=== PATIENT | male | born 1995 | race Caucasian/White ===

== ENCOUNTER → 2019-05-04 | Emergency (ER) | payer OTHER ==
[~2019-05-04] MED LIST: ALBU8.5H8 IH; CYAN10009 PO; FAMO20TA8 PO; MESALAMINE PO; MULT1TAB73 PO; PRED50TA PO
== END | disposition left against medical advice (07) ==
LOC: ER 19:46
DX: Z53.21 Procedure and treatment not carried out due to patient leaving prior to being seen by health care provider (principal)

== ENCOUNTER 2019-05-05 02:15 | Inpatient (IN) | payer OTHER ==
[~2019-05-05] VITALS: Ht 177.8 cm; Wt 60.3 kg
[2019-05-05 05:00] VITALS: BP 109/83
[2019-05-05] MEDS ORDERED: MESALAMINE PO (05:20)
[2019-05-05] MEDS ORDERED: CYAN-51 PO (05:20)
[2019-05-05] MEDS ORDERED: ALBU8.5H8 IH (05:20)
[2019-05-05] MEDS ORDERED: MULT1TAB73 PO (05:20)
[2019-05-05] MEDS ORDERED: PRED50TA PO (05:20)
[2019-05-05] MEDS ORDERED: FAMO20TA8 PO (05:20)
[2019-05-05] MEDS ORDERED: Z GUARD REMEDY 2 OZ OINT TP PRN (05:30)
[2019-05-05] MEDS ORDERED: ACETAMINOPHEN 650 MG/SUPP.RECT RC PRN (05:30)
[2019-05-05] MEDS ORDERED: KETOROLAC TROMETHAMINE INJ 30 MG/ML VIAL IM PRN (05:30)
[2019-05-05] MEDS ORDERED: MAG HYDROX/AL HYDROX/SIMETH 30 ML UDC PO PRN (05:30)
[2019-05-05] MEDS ORDERED: MAGNESIUM HYDROXIDE 30 ML UDC PO PRN (05:30)
[2019-05-05] MEDS ORDERED: ONDANSETRON HCL/PF 4 MG/2 ML VIAL IVP PRN (05:30)
[2019-05-05] MEDS ORDERED: ACETAMINOPHEN 325 MG TABLET PO PRN (05:30)
[2019-05-05 07:23] LABS: BASOPHILS % (AUTO) 0.3 % (0.0-2.0); EOSINOPHILS % (AUTO) 0.1 % (0.0-6.0); HEMATOCRIT 33 % (39-51); LYMPHOCYTES # (AUTO) 1.1 /CMM (0.8-4.8); LYMPHOCYTES % (AUTO) 19.5 % (20.0-44.0); MEAN CORPUSCULAR HGB CONC 33 g/dl (31.0-36.0); MEAN CORPUSCULAR VOLUME 82 fL (80-96); MONOCYTES # (AUTO) 0.6 /CMM (0.1-1.30); MONOCYTES % (AUTO) 10.7 % (2.0-12.0); NEUTROPHILS % (AUTO) 69.4 % (43.0-81.0); PLATELET COUNT (AUTO) 342 /CMM (150-450); RED BLOOD CELL COUNT(AUTO) 4.02 MIL/uL (4.5-6.0); WHITE BLOOD COUNT (AUTO) 5.7 K/uL (4.3-11.0)
[2019-05-05 07:49] LABS: ALBUMIN 2.6 g/dL (3.4-5.0); BILIRUBIN,TOTAL 0.4 mg/dL (0.2-1.0); CALCIUM, SERUM 8.6 mg/dL (8.5-10.1); CREATININE 0.6 mg/dL (0.6-1.3); PHOSPHORUS 4.4 mg/dL (2.5-4.9); POTASSIUM 4.4 mmol/L (3.5-5.1); TOTAL PROTEIN, SERUM 5.6 g/dL (6.4-8.2)
[2019-05-05 08:00] VITALS: BP 114/74
[2019-05-05 08:13] LABS: THYROID STIMULATING HORMONE 0.569 uIU/mL (0.358-3.74)
[2019-05-05] MEDS: FAMOTIDINE (20 MG) 20 MG TABLET PO SCH ×2 (09:00→17:13)
[2019-05-05] MEDS ORDERED: MESALAMINE 500 MG PO SCH (09:00)
[2019-05-05] MEDS: MESALAMINE 400 MG CAP PO SCH ×3 (09:00→17:13)
[2019-05-05] MEDS ORDERED: PREDNISONE 60 MG PO SCH (09:00)
[2019-05-05] MEDS ORDERED: PANTOPRAZOLE 40 MG VIAL IV SCH (09:00)
[2019-05-05] MEDS ORDERED: MORPHINE SULFATE INJ 2 MG/ML DISP.SYRIN IV PRN (09:30)
[2019-05-05] MEDS: methylPREDNISolone SOD SUCC 125 MG/2ML VIAL IV SCH (09:53)
[2019-05-05] MEDS: METOCLOPRAMIDE HCL 10 MG/2 ML VIAL IM SCH ×4 (09:54→21:18)
[2019-05-05] MEDS: IV D5/0.45 NACL 1,000 ML IV PRN (09:55)
[2019-05-05 11:54] LABS: APPEARANCE,URINE CLEAR (CLEAR); BILIRUBIN,URINE NEGATIVE (NEGATIVE); BLOOD, URINE NEGATIVE Ery/uL (NEGATIVE); COLOR,URINE YELLOW (YELLOW); KETONES,URINE NEGATIVE (NEGATIVE); LEUKOCYTE ESTERASE ,URINE NEGATIVE (NEGATIVE); NITRITE, URINE NEGATIVE (NEGATIVE); PH,URINE 5.5 (5.0-8.0); PROTEIN,URINE NEGATIVE (NEGATIVE); UGLUCOSE NEGATIVE (NEGATIVE); UROBILINOGEN,URINE 0.2 EU/dL (0.2)
[2019-05-05] MEDS ORDERED: ALBUTEROL FS 2.5 MG/3 ML VIAL.NEB NEB PRN (13:30)
[2019-05-05 16:00] VITALS: BP 104/61
[2019-05-05 20:00] VITALS: BP 126/85
[2019-05-06] MEDS: IV D5/0.45 NACL 1,000 ML IV PRN ×2 (01:23→17:12)
[2019-05-06 04:00] VITALS: BP 101/59
[2019-05-06 06:22] LABS: BASOPHILS % (AUTO) 0.4 % (0.0-2.0); EOSINOPHILS % (AUTO) 0.6 % (0.0-6.0); HEMATOCRIT 32 % (39-51); HEMOGLOBIN 10.4 g/dL (13.5-17.5); LYMPHOCYTES # (AUTO) 1.6 /CMM (0.8-4.8); LYMPHOCYTES % (AUTO) 34.4 % (20.0-44.0); MEAN CORPUSCULAR HGB CONC 33 g/dl (31.0-36.0); MEAN CORPUSCULAR VOLUME 82 fL (80-96); MONOCYTES # (AUTO) 0.6 /CMM (0.1-1.30); MONOCYTES % (AUTO) 13.4 % (2.0-12.0); NEUTROPHILS # (AUTO) 2.3 /CMM (1.8-8.9); NEUTROPHILS % (AUTO) 51.2 % (43.0-81.0); PLATELET COUNT (AUTO) 321 /CMM (150-450); RED BLOOD CELL COUNT(AUTO) 3.86 MIL/uL (4.5-6.0); WHITE BLOOD COUNT (AUTO) 4.5 K/uL (4.3-11.0)
[2019-05-06 06:31] LABS: CHOLESTEROL 95 mg/dL (<200); HDL CHOLESTEROL 38 mg/dL (40-60); LDL 50 mg/dL (0-99); TRIGLYCERIDES 47 mg/dL (30-150)
[2019-05-06 06:35] LABS: CALCIUM, SERUM 8.1 mg/dL (8.5-10.1); CREATININE 0.7 mg/dL (0.6-1.3); PHOSPHORUS 3.4 mg/dL (2.5-4.9); POTASSIUM 3.7 mmol/L (3.5-5.1)
[2019-05-06 08:00] VITALS: BP 105/69
[2019-05-06] MEDS: METOCLOPRAMIDE HCL 10 MG/2 ML VIAL IM SCH ×3 (08:17→16:54)
[2019-05-06] MEDS: methylPREDNISolone SOD SUCC 125 MG/2ML VIAL IV SCH (08:18)
[2019-05-06] MEDS: FAMOTIDINE (20 MG) 20 MG TABLET PO SCH ×2 (08:18→16:54)
[2019-05-06] MEDS: MESALAMINE 400 MG CAP PO SCH ×3 (08:22→16:54)
[2019-05-06 16:00] VITALS: BP_SYST 105; BP_SYST 109; BP_DIAS 68; BP_DIAS 69
[2019-05-06] MEDS: METOCLOPRAMIDE HCL 10 MG/2 ML VIAL IV SCH (21:59)
[2019-05-06] MEDS ORDERED: diphenhydrAMINE HCL ELIX 25 MG/10 ML UDC PO PRN (22:00)
[2019-05-07 04:00] VITALS: BP 110/70
[2019-05-07 06:51] LABS: BASOPHILS % (AUTO) 0.4 % (0.0-2.0); EOSINOPHILS % (AUTO) 1.2 % (0.0-6.0); HEMATOCRIT 34 % (39-51); HEMOGLOBIN 10.9 g/dL (13.5-17.5); LYMPHOCYTES # (AUTO) 1.6 /CMM (0.8-4.8); LYMPHOCYTES % (AUTO) 31.5 % (20.0-44.0); MEAN CORPUSCULAR HGB CONC 32 g/dl (31.0-36.0); MEAN CORPUSCULAR VOLUME 83 fL (80-96); MONOCYTES # (AUTO) 0.7 /CMM (0.1-1.30); MONOCYTES % (AUTO) 14.1 % (2.0-12.0); NEUTROPHILS # (AUTO) 2.7 /CMM (1.8-8.9); NEUTROPHILS % (AUTO) 52.8 % (43.0-81.0); PLATELET COUNT (AUTO) 385 /CMM (150-450); RED BLOOD CELL COUNT(AUTO) 4.11 MIL/uL (4.5-6.0); WHITE BLOOD COUNT (AUTO) 5.1 K/uL (4.3-11.0)
[2019-05-07 07:05] LABS: CALCIUM, SERUM 8.2 mg/dL (8.5-10.1); CREATININE 0.8 mg/dL (0.6-1.3); PHOSPHORUS 2.8 mg/dL (2.5-4.9); POTASSIUM 3.5 mmol/L (3.5-5.1)
[2019-05-07 08:00] VITALS: BP 109/63
[2019-05-07] MEDS: METOCLOPRAMIDE HCL 10 MG/2 ML VIAL IV SCH ×2 (08:58→11:39)
[2019-05-07] MEDS: methylPREDNISolone SOD SUCC 125 MG/2ML VIAL IV SCH (08:58)
[2019-05-07] MEDS: FAMOTIDINE (20 MG) 20 MG TABLET PO SCH (08:58)
[2019-05-07] MEDS: MESALAMINE 400 MG CAP PO SCH (08:59)
[2019-05-07] MEDS ORDERED: PRED50TA PO (10:37)
[2019-06-09] MEDS ORDERED: METR250T36 PO (13:36)
[2019-06-09] MEDS ORDERED: CIPR500S3 PO (13:36)
== END 2019-05-07 12:25 | disposition home or self-care (01) | DRG 245 ==
LOC: MEDSG1 04:32 → TELE1 05:31 → MEDSG1 10:30 → TELE1 11:00 → MEDSG1 11:02
PROVIDERS: ADMIT Student in an Organized Health Care Education/Training Program; ATTEND Student in an Organized Health Care Education/Training Program
DX: K50.912 Crohn's disease, unspecified, with intestinal obstruction (principal); K56.2 Volvulus; E44.1 Mild protein-calorie malnutrition; K56.699 Other intestinal obstruction unspecified as to partial versus complete obstruction; J45.909 Unspecified asthma, uncomplicated; D64.9 Anemia, unspecified; Z66 Do not resuscitate; Z91.14 Patient's other noncompliance with medication regimen; Z68.1 Body mass index [BMI] 19.9 or less, adult
CPT/HCPCS: 36415; 74018; 80048-TC; 80053-TC; 80061-TC; 81000-TC; 82728-TC; 83540-TC; 83690-TC; 83735-TC; 84100-TC; 84443-TC; 85025-TC; 85652-TC; 85730-TC; 87040-TC; G0378; J2270; J2765; J2930; J3490; Q0163

== ENCOUNTER 2019-06-10 12:40 | Inpatient (IN) | payer OTHER ==
[~2019-06-10] VITALS: Ht 172.7 cm; Wt 61.2 kg
[~2019-06-10 12:40] MED LIST changes: +CIPR500S3 PO; +CYAN-51 PO; -CYAN10009 PO; +METR250T36 PO
--- NOTE | 2019-06-10 12:50 | NUR ---
DELINQUENCY PREVENTION OFFICER NOTE RECEIVED REPORT FROM ANETTE MUNSON FROM [place].RECEIVED PATIENT IN UNIT VIA GURNEY,BROUGHT BY EMT.PATIENT AXOX4.ON TELE MONITOR SR HR 72.NO SOB NO DISTRESS NOTED.ON RA.SATURATING WELL.C/O ABDOMINAL PAIN.ABDOMEN SOFT AND MILDLY DISTENDED.BLOATED.C/O NAUSEA.IV ON RFA#22.INTACT AND PATENT.BED IS LOCKED AND IN LOW POSITION.CALL LIGHT IN REACH.SRX2.PATIENT BRP WITH STEADY GATE.WILL CONTINUE TO MONITOR.
[2019-06-10 13:03] VITALS: BP 107/64
[2019-06-10] MEDS ORDERED: MAGNESIUM HYDROXIDE 30 ML UDC PO PRN (13:30)
[2019-06-10] MEDS ORDERED: ACETAMINOPHEN 325 MG TABLET PO PRN (13:30)
[2019-06-10] MEDS ORDERED: HYDROCODONE/APAP 5/325MG 1 EACH TABLET PO PRN (13:30)
[2019-06-10] MEDS ORDERED: ONDANSETRON HCL/PF 4 MG/2 ML VIAL IVP PRN (13:30)
[2019-06-10] MEDS ORDERED: MAG HYDROX/AL HYDROX/SIMETH 30 ML UDC PO PRN (13:30)
--- NOTE | 2019-06-10 13:30 | NUR ---
SUPPORT GROUP MANAGER NOTE PATIENT REQUESTED TO HAVE MORPHINE 4MG IV PRN Q4H. MADE AWARE.TO CONTINUE SAME ORDERS 2MG.PATIENT MADE AWARE.WILL CONTINUE TO MONITOR.
[2019-06-10] MEDS ORDERED: PRED20TA PO (13:36)
[2019-06-10] MEDS ORDERED: FERR325T23 PO (13:36)
[2019-06-10] MEDS: IV NS 0.9% 1,000 ML IV PRN (13:40)
[2019-06-10] MEDS: MORPHINE SULFATE INJ 2 MG/ML DISP.SYRIN IV PRN ×3 (13:41→22:17)
[2019-06-10 16:00] VITALS: BP_SYST 102; BP_SYST 122; BP_DIAS 64; BP_DIAS 69
[2019-06-10] MEDS: methylPREDNISolone SOD SUCC 40 MG/ML VIAL IV SCH ×2 (17:12→23:34)
[2019-06-10] MEDS: METRONIDAZOLE 500MG/ NS 100ML 500 MG in PREMIX 1 EA IV SCH ×2 (17:12→23:34)
--- NOTE | 2019-06-10 19:00 | NUR ---
FIRE SPRINKLER DESIGNER OPENING NOTES RECEIVED BEDSIDE REPORT FROM AM RN. PATIENT AWAKE, A/OX4. ON TELE MONITOR SR WITH HR 74. ON ROOM AIR, NO SOB AND RESPIRATORY DISTRESS NOTED. C/O ABDOMINAL PAIN, WILL ADMINISTER PRN MED. ABDOMEN SOFT AND MILDLY DISTENDED, BLOATED. C/O NAUSEA, WILL ADMINISTER PRN NAUSEA MEDICATION. IV ON RFA#22, IV FLUIDS RUNNING ORDERED, IV SITE INTACT AND PATENT. SAFETY MEASURES IN PLACE; CALL LIGHT WITHIN REACH, BED IS LOCKED AND IN LOW POSITION, SIDE RAILS UP X2. PER REPORT, PATIENT BRP WITH STEADY GATE. WILL CONTINUE TO MONITOR.
--- NOTE | 2019-06-10 19:07 | NUR ---
POWER GRADER OPERATOR CLOSING NOTE ENDORSED PATIENT TO PM NURSE FOR YASHIRA.PATIENT SLEEPING .EASILY AROUSABLE.PRN PAIN MEDS GIVEN.
[2019-06-10 20:00] VITALS: BP 94/57
--- NOTE | 2019-06-10 22:01 | NUR ---
HYDRODYNAMICIST NOTES PATIENT REQUESTING FOR PAIN MEDICATION, RATED ABDOMINAL PAIN 8/10. BP CHECKED 106/57. PATIENT STATED THAT IS HIS NORMAL BP RANGE. WILL ADMINISTER PRN PAIN MEDICATION.
[2019-06-11] VITALS: BP 102/63
[2019-06-11] MEDS: MORPHINE SULFATE INJ 2 MG/ML DISP.SYRIN IV PRN ×5 (02:51→21:14)
[2019-06-11 04:00] VITALS: BP 100/47
[2019-06-11] MEDS: METRONIDAZOLE 500MG/ NS 100ML 500 MG in PREMIX 1 EA IV SCH ×4 (06:16→23:54)
[2019-06-11] MEDS: methylPREDNISolone SOD SUCC 40 MG/ML VIAL IV SCH ×4 (06:16→23:57)
[2019-06-11 06:33] LABS: BASOPHILS % (AUTO) 0.1 % (0.0-2.0); HEMATOCRIT 32 % (39-51); HEMOGLOBIN 10.5 g/dL (13.5-17.5); LYMPHOCYTES # (AUTO) 0.8 /CMM (0.8-4.8); LYMPHOCYTES % (AUTO) 9.6 % (20.0-44.0); MEAN CORPUSCULAR HGB CONC 33 g/dl (31.0-36.0); MEAN CORPUSCULAR VOLUME 82 fL (80-96); MONOCYTES # (AUTO) 0.1 /CMM (0.1-1.30); MONOCYTES % (AUTO) 1.7 % (2.0-12.0); NEUTROPHILS # (AUTO) 6.9 /CMM (1.8-8.9); NEUTROPHILS % (AUTO) 88.6 % (43.0-81.0); PLATELET COUNT (AUTO) 322 /CMM (150-450); WHITE BLOOD COUNT (AUTO) 7.8 K/uL (4.3-11.0)
[2019-06-11 06:47] LABS: THYROID STIMULATING HORMONE 0.236 uIU/mL (0.358-3.74)
[2019-06-11 06:50] LABS: CALCIUM, SERUM 8.4 mg/dL (8.5-10.1); CREATININE 0.9 mg/dL (0.6-1.3); MAGNESIUM 2.3 mg/dL (1.8-2.4); PHOSPHORUS 5.8 mg/dL (2.5-4.9); POTASSIUM 4.6 mmol/L (3.5-5.1)
--- NOTE | 2019-06-11 07:51 | NUR ---
MAGNET MAKER CLOSING NOTES NO ACUTE CHANGES THROUGHOUT SHIFT. ALL MD ORDERS ATTENDED. ALL NEEDS ANTICIPATED AND MET. ENDORSED TO AM RN FOR YASHIRA.
[2019-06-11 08:00] VITALS: BP 100/62
--- NOTE | 2019-06-11 08:00 | NUR ---
PLANNING AIDE NOTES PT IN BED, AWAKE, ALERT AND ORIENTED, WITH COMPLAINT OF ABDOMINAL PAIN, NO COMPLAINT OF NAUSEA OR DIARRHEA, BREATHING PATTERN NORMAL, IV FLUIDS INFUSING WELL, CALL LIGHT WITHIN REACH, NEEDS ATTENDED.
[2019-06-11] MEDS: IV NS 0.9% 1,000 ML IV PRN ×2 (08:16→20:00)
--- NOTE | 2019-06-11 11:00 | NUR ---
RN MS NOTES PER DR. MUIR, PT OK TO HAVE CLEAR LIQUID DIET IF HE IS TOLERATING IT.
[2019-06-11 12:00] VITALS: BP 93/50
--- NOTE | 2019-06-11 13:00 | NUR ---
RN MS NOTES PT IN BED, AWAKE, ALERT AND ORIENTED, PAIN MEDICATION GIVEN FOR PAIN MANAGEMENT, VERBALIZED RELIEF ON REASSESSMENT, AMBULATES WITH STEADY GAIT, SEEN AND EXAMINED BY DR. MUIR, PLAN OF CARE INCLUDING CODE STATUS DISCUSSED WITH PT, VERBALIZED UNDERSTANDING, NEEDS ATTENDED.
[2019-06-11 16:00] VITALS: BP 102/65
--- NOTE | 2019-06-11 18:12 | NUR ---
RN MS NOTES PT AWAKE, NOT IN DISTRESS, NO COMPLAINT OF PAIN AT THIS TIME, WALKING ALONG THE HALLWAY WITH STEADY GAIT, TOLERATES CURRENT DIET OF CLEAR LIQUIDS, PM MEDS GIVEN ORDERED, PT INSISTING OF ADVANCING HIS DIET BECAUSE HE IS HUNGRY, EXPLAINED TO PT THE IMPORTANCE OF BOWEL REST ORDERED AND INSTRUCTED BY MD, WILL CONTINUE TO MONITOR.
[2019-06-11 20:00] VITALS: BP 103/59
[2019-06-12] MEDS: MORPHINE SULFATE INJ 2 MG/ML DISP.SYRIN IV PRN ×6 (01:36→22:37)
[2019-06-12 04:00] VITALS: BP 107/61
[2019-06-12] MEDS: methylPREDNISolone SOD SUCC 40 MG/ML VIAL IV SCH ×4 (05:28→23:26)
[2019-06-12] MEDS: METRONIDAZOLE 500MG/ NS 100ML 500 MG in PREMIX 1 EA IV SCH ×4 (05:28→23:33)
[2019-06-12] MEDS: IV NS 0.9% 1,000 ML IV PRN ×2 (05:36→22:32)
--- NOTE | 2019-06-12 05:57 | NUR ---
RN NOTES PATIENT IN BED, AWAKE WATCHING TV. ALERT AND ORIENTED. VERBALLY ABLE TO COMMUNICATE NEED. AMBULATORY. MORPHINE ADMINISTERED ROUND THE CLOCK FOR ABDOMINAL PAIN. WANTED TO GO AMA, BUT CHANGED MIND LATER. NEEDS ATTENDED. KEPT CLEAN AND DRY. WILL ENDORSE TO NEXT SHIFT FOR CONTINUITY OF CARE.
[2019-06-12 07:28] LABS: CALCIUM, SERUM 7.9 mg/dL (8.5-10.1); CREATININE 0.6 mg/dL (0.6-1.3); POTASSIUM 4.6 mmol/L (3.5-5.1)
[2019-06-12 07:39] LABS: BASOPHILS % (AUTO) 0.2 % (0.0-2.0); HEMATOCRIT 31 % (39-51); LYMPHOCYTES # (AUTO) 0.7 /CMM (0.8-4.8); LYMPHOCYTES % (AUTO) 6.5 % (20.0-44.0); MEAN CORPUSCULAR HGB CONC 33 g/dl (31.0-36.0); MEAN CORPUSCULAR VOLUME 82 fL (80-96); MONOCYTES # (AUTO) 0.5 /CMM (0.1-1.30); MONOCYTES % (AUTO) 4.5 % (2.0-12.0); NEUTROPHILS # (AUTO) 9.1 /CMM (1.8-8.9); NEUTROPHILS % (AUTO) 88.8 % (43.0-81.0); PLATELET COUNT (AUTO) 333 /CMM (150-450); RED BLOOD CELL COUNT(AUTO) 3.73 MIL/uL (4.5-6.0); WHITE BLOOD COUNT (AUTO) 10.3 K/uL (4.3-11.0)
--- NOTE | 2019-06-12 07:43 | NUR ---
RN OPENING NOTES Patient remains on room air, no sob noted, patient denies pain at this time. Patient lying down comfortably on bed, patient able to verbalize needs. RFA #22 remains patent at NS 75 mL per hour. Bed at the lowest setting, call light within reach.
[2019-06-12 08:00] VITALS: BP 102/66
--- NOTE | 2019-06-12 11:11 | NUR ---
Social service consult requested by Dr. Mclean for history of substance abuse. Pt. is a 24 year old male who was admitted to [facility] for abdominal pain. SW met with pt. bedside. Pt. is alert and oriented x 4. Pt. was lying in his bed when SW met with him. Pt. is cooperative with SW during the assessment. Pt's mood is congruent. Pt. stated he was living with his mom but is not able to go back due to landlord having issues with pt. being there. Pt. is currently homeless. SW inquired with pt. if he would like [facility] placement, Pt. stated, " I don't know yet." SW to come back later to ask pt. his discharge plan. Pt. is a methamphetamine user and stated he last used 60 days ago. Pt. is interested in going to an inpatient treatment program and informed SW that [facility] has initiated a referral packet to [facility]. SW to follow up with Anastasiia Miller at [facility]. Pt. was using methamphetamines daily. Pt. denies alcohol, marijuana and cigarette use. Pt. states he has a history of Bipolar and Depression and is no longer taking any psychotropic medications. MATTIE contacted [facility] and spoke with Anastasiia Contro [phone]. Per Anastasiia, pt. keeps hopping from one hospital to another and a new referral needs to be sent from every hospital which is delaying the process of pt. being accepted. Anastasiia requested for SW to send a referral packet. MATTIE faxed referral to intake at [facility] at .
[2019-06-12 16:00] VITALS: BP 110/70
--- NOTE | 2019-06-12 17:57 | NUR ---
RN CLOSING NOTES Patient remains on room air, no sob noted, patient remains a/o x4. Patient states he has abdominal pain but is controlled with medications. Patient told doctor that he wants to eat solid food, even though his abdominal xray tests shows bowel obstruction. MD explained to the patient of risks of eating, patient stated he understood and wanted to eat anyway. Patient able to eat without pain and vomiting. Bed at the lowest setting, call light within reach, will give report to NOC RN for YASHIRA bedside.
--- NOTE | 2019-06-12 19:10 | NUR ---
CHANGED OF SHIFT REPORT Patient in bed, awake, A/O x 4. IVF infusing. Abdomen soft and tender, mildly distended. Started Soft diet today per report. Patient denies nausea, vomiting. Reports had BM today. Instructed to use call light for assistance, verbalized understanding.
[2019-06-12 20:00] VITALS: BP 114/63
[2019-06-13] MEDS: MORPHINE SULFATE INJ 2 MG/ML DISP.SYRIN IV PRN ×2 (02:44→07:42)
[2019-06-13 04:00] VITALS: BP 110/66
[2019-06-13 04:05] VITALS: BP 110/66
[2019-06-13] MEDS: methylPREDNISolone SOD SUCC 40 MG/ML VIAL IV SCH ×2 (05:32→12:00)
[2019-06-13] MEDS: METRONIDAZOLE 500MG/ NS 100ML 500 MG in PREMIX 1 EA IV SCH (05:34)
--- NOTE | 2019-06-13 06:16 | NUR ---
END OF SHIFT REPORT Patient in bed, stable oxygen saturation on RA. Soft diet tolerated, denies nausea, no vomiting. Reports had BM this morning, no diarrhea. IVF infusing maintained at 75ml/hr. IV abx as scheduled. Ambulates independently. Abdominal pain controlled with PRN Morphine, VSS afebrile. No acute events overnight. Maintained safety.
[2019-06-13 06:36] LABS: BASOPHILS % (AUTO) 0.1 % (0.0-2.0); HEMATOCRIT 31 % (39-51); HEMOGLOBIN 10.2 g/dL (13.5-17.5); LYMPHOCYTES # (AUTO) 1.1 /CMM (0.8-4.8); LYMPHOCYTES % (AUTO) 9.4 % (20.0-44.0); MEAN CORPUSCULAR HGB CONC 33 g/dl (31.0-36.0); MEAN CORPUSCULAR VOLUME 83 fL (80-96); MONOCYTES % (AUTO) 8.2 % (2.0-12.0); NEUTROPHILS # (AUTO) 9.7 /CMM (1.8-8.9); NEUTROPHILS % (AUTO) 82.3 % (43.0-81.0); PLATELET COUNT (AUTO) 340 /CMM (150-450); RED BLOOD CELL COUNT(AUTO) 3.78 MIL/uL (4.5-6.0); WHITE BLOOD COUNT (AUTO) 11.8 K/uL (4.3-11.0)
[2019-06-13 07:00] LABS: CALCIUM, SERUM 7.9 mg/dL (8.5-10.1); CREATININE 0.6 mg/dL (0.6-1.3); POTASSIUM 4.4 mmol/L (3.5-5.1)
--- NOTE | 2019-06-13 07:30 | NUR ---
RN AM SHIFT NOTE PATIENT ALERT ORITNED X4. IN BED COMPLAINTS OF PAIN IN ABD. WILL CONTINUE CURRENT MEDICATION PAIN MANAGMENT ORDERED. PATIENT REPORTS EATING WELL AND HAVING REGULAR BOWL MOVEMENTS THROUGH OUT THE SHIFT. PATIETN REQUEST TO HAVE [employer] VISIT HIM REGARDING SOCIAL SERVCIES, RN INFORMED [employer] OF REQUEST. PATIENT ATE BREAKFAST WELL. WILL CONTINUE TO MONTIR. CALL LIGHT WITHIN REACH , ALL NEEDS MET AT THIS TIME.
[2019-06-13 08:00] VITALS: BP 106/67
--- NOTE | 2019-06-13 11:22 | NUR ---
MATTIE left a message for Belkis Osullivan at [facility] [phone] to inquire the status of referral that was sent to her and Anastasiia yesterday.
[2019-06-13] MEDS ORDERED: METRONIDAZOLE 250 MG TABLET PO SCH (12:00)
--- NOTE | 2019-06-13 13:58 | NUR ---
MATTIE met with pt. bedside to discuss discharge plan and referral to TTC. MATTIE informed the pt. that she had spoke with Anastasiia at [facility] who had informed her that every time pt. goes to a hospital and a referral is made to TTC it is counted as a new referral and not a continuous referral. Pt. stated, " that's what I was afraid of." MATTIE informed pt. she did fax a new referral yesterday and if they happen to call SW she will give them his contact number . Pt's mother Silvia is coming to picker machine operator the pt. from the hospital.
--- NOTE | 2019-06-13 14:59 | NUR ---
CHRISTMAS BELL RINGER NOTE PATIENT GIVEN DISCHARGE INFORMATION AND TAP CARD FOR THE BUS. PATIENT IV WAS DISCONNECTED AND BELONGINGS LIST WAS GIEN TO THE PATIENT TO SIGN, WELL MEDICATION RETURNED FROM PHARMACY. PATIENT HAS A GOOD UNDERSTANDING OF HEALTH AND STATED TO RN THAT HE WILL GO TO A FRIENDS HOUSE IN [place]. VITALS ARE WNL AND NO COMPLAINTS OF PAIN, BOWL MOVEMENTS ARE REGUALR NO BLOOD IN STOOL, NONDISTENDED ABDOMEN. RN WALKED PATIENT OUT TO THE EXIT.
[2019-06-13 16:00] VITALS: BP_SYST 104; BP_SYST 108; BP_DIAS 59; BP_DIAS 70
--- NOTE | 2019-06-13 18:00 | NUR ---
PER PATIENT MOTHER NOT COMIMNG TO PICK HIM UP,BUS PASS GIVEN TO PATIENT,ALSO PATIENT SIGNED HOMELESS WAIVER.AUTO JOB ESTIMATOR XIANG NOTIFIED.
== END 2019-06-13 18:00 | disposition home or self-care (01) | DRG 247 ==
LOC: TELE1 12:40 → MEDSG1 06-11 10:45
PROVIDERS: ADMIT Family Medicine; ATTEND Student in an Organized Health Care Education/Training Program
DX: K56.609 Unspecified intestinal obstruction, unspecified as to partial versus complete obstruction (principal); E44.0 Moderate protein-calorie malnutrition; D64.9 Anemia, unspecified; D72.829 Elevated white blood cell count, unspecified; J45.909 Unspecified asthma, uncomplicated; Z68.20 Body mass index [BMI] 20.0-20.9, adult; E88.09 Other disorders of plasma-protein metabolism, not elsewhere classified; R73.9 Hyperglycemia, unspecified; K58.9 Irritable bowel syndrome, unspecified; R94.6 Abnormal results of thyroid function studies; Z66 Do not resuscitate; T38.0X5A Adverse effect of glucocorticoids and synthetic analogues, initial encounter; Y92.89 Other specified places as the place of occurrence of the external cause
CPT/HCPCS: 36415; 74018; 80048-TC; 80061-TC; 83735-TC; 84100-TC; 84443-TC; 85025-TC; 87081-TC; A4216; G0378; J2270; J2405; J2920; J3490; J7030

== ENCOUNTER 2019-06-28 08:48 | Inpatient (IN) | payer OTHER ==
[~2019-06-28] VITALS: Ht 172.7 cm; Wt 61.7 kg
[~2019-06-28 08:48] MED LIST changes: -CIPR500S3 PO; -CYAN-51 PO; -FAMO20TA8 PO; +FERR325T23 PO; -MULT1TAB73 PO; +PRED20TA PO; -PRED50TA PO
[2019-06-28 11:00] VITALS: BP 122/74
[2019-06-28 11:30] VITALS: BP 122/74
--- NOTE | 2019-06-28 11:30 | NUR ---
MS CHARGE POSTER NOTE RECEIVED PATIENT BY BOB. PATIENT IS AMBULATORY TO BED. PATIENT IN NO ACUTE DISTRESS. NO SOB NOTED. PATIENT BREATHING IS EVEN AND UNLABORED. PATIENT BREATHING ON ROOM AIR SATURATING >95% SPO2. VITAL SIGNS WNL. PATIENT STATES NO PAIN AT THIS TIME. PATIENT MEDICATIONS COLLECTED AND SENT TO PHARMACY WITH PATIENT ACKNOWLEDGEMENT AND SIGNATURE. PATIENT STATED TO KEEP INHALER WITH HIS PERSONAL BELONGINGS. I INSTRUCTED PATIENT NOT TO USE DURING STAY AT HOSPITAL. PATIENT ACKNOWLEDGED AND VERBALIZED UNDERSTANDING. PATIENT BED IS LOCKED AND IN LOWEST POSITION. CALL LIGHT WITHIN REACH. MD NOTIFIED AND MADE AWARE. WAITING ON ADMISSION ORDERS. WILL CONTINUE TO MONITOR.
[2019-06-28] MEDS ORDERED: OXYC-128 PO (11:55)
[2019-06-28] MEDS ORDERED: ACETAMINOPHEN 650 MG/SUPP.RECT RC PRN (13:30)
[2019-06-28] MEDS ORDERED: ONDANSETRON HCL/PF 4 MG/2 ML VIAL IVP PRN (13:30)
[2019-06-28] MEDS ORDERED: Z GUARD REMEDY 2 OZ OINT TP PRN (13:30)
[2019-06-28] MEDS: HYDROMORPHONE INJ 2 MG/ML DISP.SYRIN IV PRN ×3 (14:38→23:13)
[2019-06-28] MEDS: METRONIDAZOLE 500MG/ NS 100ML 500 MG in PREMIX 1 EA IV SCH (14:44)
[2019-06-28] MEDS: IV D5/ 0.9% NACL 1,000 ML IV PRN (14:48)
[2019-06-28 16:00] VITALS: BP 118/72
[2019-06-28] MEDS: PIPERACILLIN /TAZOBACTAM 3.375 G in IV D5W 50 ML IV SCH ×3 (16:13→23:18)
--- NOTE | 2019-06-28 18:54 | NUR ---
MS RN CLOSING NOTE PATIENT IN BED RESTING, PATIENT IN NO ACUTE DISTRESS. NO SOB NOTED. PATIENT BREATHING ON ROOM AIR SATURATING >95% SPO2. PATIENT STATES ABDOMINAL PAIN 5/10. PATIENT VERBALIZES NEEDS AND CONCERNS. NEEDS AND CONCERNS ADDRESSED. PATIENT KEPT CLEAN AND DRY THROUGHOUT SHIFT. ALL NURSING NEEDS MET. PATIENT BED IS LOCKED AND IN LOWEST POSITION. CALL LIGHT WITHIN REACH. ENDORSED CARE TO PM SHIFT FOR YASHIRA.
--- NOTE | 2019-06-28 19:24 | NUR ---
MS ELECTRONIC DEVICE REPAIRER INITIAL NOTES RECEIVED REPORT FROM AM NURSE MARCELO WHILE HE'S GIVING PAIN MEDICATION TO THE PATIENT FOR HIS ABDOMINAL PAIN, NO N/V NOTED AT THIS TIME. HE STILL WITH IVF D5NS AT 75ML/HR INFUSING AT THIS TIME ORDERED. PT NPO AND PT AWARE OF IT. KEPT HIM WARM AND COMFORTABLE AT ALL TIMES. PLACE CALL LIGHT AT REACH. WILL CONTINUE MONITORING. WILL RE-ASSESS HIS PAIN LATER.
[2019-06-28 20:00] VITALS: BP 110/60
[2019-06-28] MEDS ORDERED: PIPERACILLIN /TAZOBACTAM 3.375 G VIAL IV ONE ×2 (22:31→23:12)
[2019-06-28] MEDS: ZOLPIDEM TARTRATE 5 MG TABLET PO PRN (22:49)
--- NOTE | 2019-06-28 23:13 | NUR ---
rn notes complained of abdominal pain- dialudid 1 mg iv given as ordered, v/s stable
--- NOTE | 2019-06-29 01:33 | NUR ---
ms jennifer notes pt asleep no signs of any distress noted. kept him warm and comfortable at all times. ivf still infusing. will continue monitoring. place call light at reach.
[2019-06-29] MEDS ORDERED: PIPERACILLIN /TAZOBACTAM 3.375 G VIAL IV ONE (04:32)
--- NOTE | 2019-06-29 04:35 | NUR ---
ms jennifer notes insurance producer told me that pt called for his pain medication but when i checked that pt he's sleeping at this time. no signs of any distress noted. so we hold that pain meds for a while.
[2019-06-29] MEDS: PIPERACILLIN /TAZOBACTAM 3.375 G in IV D5W 50 ML IV SCH ×4 (04:39→21:45)
[2019-06-29] MEDS: IV D5/ 0.9% NACL 1,000 ML IV PRN ×2 (04:49→21:50)
[2019-06-29] MEDS: METRONIDAZOLE 500MG/ NS 100ML 500 MG in PREMIX 1 EA IV SCH ×5 (06:15→23:31)
[2019-06-29] MEDS: HYDROMORPHONE INJ 2 MG/ML DISP.SYRIN IV PRN ×4 (07:03→20:24)
--- NOTE | 2019-06-29 07:03 | NUR ---
ms cutting room supervisor closing notes pt woke up and asking for his pain medication , dilaudid 1 mg given by another nurse as ordered galina IVP. all due meds given and all needs met. kept him warm and comfortable at all times. endorse to am nurse for continuity of care. place call light at reach.
--- NOTE | 2019-06-29 07:11 | NUR ---
RN NOTES COMPLAINED OF ABDOMINAL PAIN DILAUDID 1MG IV GIVEN ORDERED, V/S STABLE
--- NOTE | 2019-06-29 07:21 | NUR ---
MS RN OPENING NOTES RECEIVED PATIENT AWAKE IN BED RESTING COMFORTABLY. A/O X 4. ON ROOM AIR. NO SOB NOTED. ON IV FLUIDS ON RIGHT FA #22 WITH D5NS @75 ML/HR. PATENT AND INTACT. SAFETY MEASURES IN PLACE, BED IN LOW LOCKED POSITION, SIDE RAILS UP X2. CALL LIGHT WITHIN EASY REACH. WILL CONTINUE TO MONITOR.
[2019-06-29 07:37] LABS: BASOPHILS % (AUTO) 0.4 % (0.0-2.0); EOSINOPHILS % (AUTO) 1.7 % (0.0-6.0); HEMATOCRIT 32 % (39-51); HEMOGLOBIN 10.7 g/dL (13.5-17.5); LYMPHOCYTES # (AUTO) 1.6 /CMM (0.8-4.8); LYMPHOCYTES % (AUTO) 22.4 % (20.0-44.0); MEAN CORPUSCULAR HGB CONC 33 g/dl (31.0-36.0); MEAN CORPUSCULAR VOLUME 87 fL (80-96); MONOCYTES # (AUTO) 0.6 /CMM (0.1-1.30); MONOCYTES % (AUTO) 7.9 % (2.0-12.0); NEUTROPHILS # (AUTO) 4.9 /CMM (1.8-8.9); NEUTROPHILS % (AUTO) 67.6 % (43.0-81.0); PLATELET COUNT (AUTO) 224 /CMM (150-450); RED BLOOD CELL COUNT(AUTO) 3.74 MIL/uL (4.5-6.0); WHITE BLOOD COUNT (AUTO) 7.2 K/uL (4.3-11.0)
[2019-06-29 07:57] LABS: ALBUMIN 2.4 g/dL (3.4-5.0); BILIRUBIN,TOTAL 1.8 mg/dL (0.2-1.0); CALCIUM, SERUM 8.2 mg/dL (8.5-10.1); CREATININE 0.7 mg/dL (0.6-1.3); MAGNESIUM 2.2 mg/dL (1.8-2.4); PHOSPHORUS 4.7 mg/dL (2.5-4.9); POTASSIUM 3.6 mmol/L (3.5-5.1); TOTAL PROTEIN, SERUM 4.8 g/dL (6.4-8.2)
[2019-06-29 08:03] VITALS: BP 109/66
[2019-06-29 08:05] LABS: THYROID STIMULATING HORMONE 0.835 uIU/mL (0.358-3.74)
--- NOTE | 2019-06-29 09:15 | NUR ---
MS RN NOTES DR. RUIZ CALLED REGARDING PATIENT [phone]. ORDERED TO CHANGE DIET TO CLEAR LIQUIDS. WILL CONTINUE TO MONITOR.
[2019-06-29 16:00] VITALS: BP 105/74
--- NOTE | 2019-06-29 16:35 | NUR ---
MS RN NOTES PATIENT SEEN AND EXAMINED BY DR. RUIZ WITH NEW ORDERS TO ADVANCE DIET TO REGULAR DIET. WILL CONTINUE TO MONITOR.
--- NOTE | 2019-06-29 17:00 | NUR ---
MS RN NOTES CALLED RADIOLOGY TO F/U REGARDING XR. NO ANSWER. AWAITING FOR CALL BACK. WILL F/U.
--- NOTE | 2019-06-29 18:58 | NUR ---
MS RN CLOSING NOTES PATIENT IN BED RESTING COMFORTABLY. A/O X 4. ABLE TO MAKE NEEDS KNOWN. ON IV FLUIDS ON RFA #22 WITH D5NS @75 ML/HR. PATENT AND INTACT. ALL NURSING NEEDS AND CARE ATTENDED WELL. SAFETY MEASURES KEPT IN PLACE. BED IN LOW LOCKED POSITION WITH SIDE RAILS UP X2. BEDSIDE TABLE AND CALL LIGHT WITHIN REACH. WILL ENDORSE TO IT PORTFOLIO MANAGER NURSE FOR YASHIRA.
--- NOTE | 2019-06-29 19:30 | NUR ---
ms jennifer initial notes received report from am nurse and seen pt in bed awake and alert watching TV and he asked for another milk and crackers. pt also aware that he will be NPO after Midnight because for his X-ray in am as ordered. no signs of any discomfort at this time. kept him warm and comfortable at all times. place call light at reach. will continue monitoring.
[2019-06-29 20:00] VITALS: BP 101/58
[2019-06-29] MEDS: ZOLPIDEM TARTRATE 5 MG TABLET PO PRN (21:35)
[2019-06-30] MEDS: HYDROMORPHONE INJ 2 MG/ML DISP.SYRIN IV PRN ×5 (01:53→19:41)
--- NOTE | 2019-06-30 01:53 | NUR ---
RN NOTES Patient c/o of abdominal pain, 08/01. Requesting for pain medication. V/S stable. Dilaudid 1mg given as ordered. Will continue to monitor
[2019-06-30] MEDS: PIPERACILLIN /TAZOBACTAM 3.375 G in IV D5W 50 ML IV SCH ×4 (04:42→21:40)
[2019-06-30] MEDS: METRONIDAZOLE 500MG/ NS 100ML 500 MG in PREMIX 1 EA IV SCH ×3 (06:18→22:44)
[2019-06-30 07:15] LABS: BASOPHILS % (AUTO) 0.3 % (0.0-2.0); EOSINOPHILS % (AUTO) 2.1 % (0.0-6.0); HEMATOCRIT 36 % (39-51); HEMOGLOBIN 11.6 g/dL (13.5-17.5); LYMPHOCYTES # (AUTO) 1.7 /CMM (0.8-4.8); LYMPHOCYTES % (AUTO) 26.5 % (20.0-44.0); MEAN CORPUSCULAR HGB CONC 33 g/dl (31.0-36.0); MEAN CORPUSCULAR VOLUME 87 fL (80-96); MONOCYTES # (AUTO) 0.6 /CMM (0.1-1.30); MONOCYTES % (AUTO) 9.5 % (2.0-12.0); NEUTROPHILS % (AUTO) 61.6 % (43.0-81.0); PLATELET COUNT (AUTO) 265 /CMM (150-450); RED BLOOD CELL COUNT(AUTO) 4.06 MIL/uL (4.5-6.0); WHITE BLOOD COUNT (AUTO) 6.5 K/uL (4.3-11.0)
--- NOTE | 2019-06-30 07:31 | NUR ---
MS RN OPENING NOTES RECEIVED PT AWAKE IN BED. A/O X3. TOLERATING RA, WITH NO ACUTE RESPIRATORY DISTRESS. PT DENIES PAIN OR DISCOMFORT AT THIS MOMENT. PT CURRENT ON NPO AND AWARE WAITING FOR XRAY OF SMALL BOWEL. PT DENIES ANY CONCERNS OR QUESTIONS AT THIS TIME. IVF NS AT 75ML/HR TO RFA G22, INTACT AND FLUID INFUSING WELL. PT KEPT COMFORTABLE. PT'S BED IN LOWEST, LOCKED POSITION WITH SR X3. CALL LIGHT KEPT WITHIN REACH. WILL CONTINUE PLAN OF CARE.
--- NOTE | 2019-06-30 07:33 | NUR ---
ms drier and evaporator operator closing notes pt awake and alert watching tv and waiting for X-ray today. no signs of any discomfort . no n/v as well. slept well with his sleep medication. all due meds given and all needs met. kept him comfortable at all times. ivf still infusing. endorse to am nurse for continuity of care.
[2019-06-30 08:00] VITALS: BP 106/71
[2019-06-30 08:31] LABS: CALCIUM, SERUM 8.4 mg/dL (8.5-10.1); CREATININE 0.8 mg/dL (0.6-1.3); MAGNESIUM 2.2 mg/dL (1.8-2.4); POTASSIUM 4.5 mmol/L (3.5-5.1)
[2019-06-30] MEDS ORDERED: DIATR MEGLU/DIATRIZOATE SODIUM 120 ML BOTTLE (GASTROGRAPHIN) ONE (09:31)
--- NOTE | 2019-06-30 12:11 | NUR ---
RN NOTES RECEIVED PHONE CALL FROM FOREST PATHOLOGIST/AP REGARDING SB FOLLOW THROUGH. FOREST PATHOLOGIST ORDERED CT OF ABDOMEN PELVIS WITHOUT CONTRAST TO R/O RUQ LARGE BOWEL VOLVULUS. PT MADE AWARE. PT STILL ON NPO AT THE MOMENT. WILL CONTINUE PLAN OF CARE.
[2019-06-30 16:00] VITALS: BP 107/73
[2019-06-30] MEDS: IV D5/ 0.9% NACL 1,000 ML IV PRN (18:31)
--- NOTE | 2019-06-30 18:35 | NUR ---
MS MUNSON OPENING NOTES PT REMAINS AWAKE IN BED. A/O X3-4, AMBULATORY. TOLERATING RA, WITH NO ACUTE RESPIRATORY DISTRESS. PT DENIES PAIN OR DISCOMFORT AT THIS MOMENT. PT AWARE OF RESULTS OF TODAY'S PROCEDURE XR SMALL BOWEL FOLLOW THROUGH AND CT ABDOMEN AND PELVIS; PT WAS INFORMED BY SECURITY ASSURANCE ANALYST/AP ABOUT PLAN OF CARE. IVF D5 NS AT 75ML/HR TO RFA G22, INTACT AND FLUID INFUSING WELL. ALL NEEDS AND CARE ATTENDED. PT KEPT COMFORTABLE. PT'S BED IN LOWEST, LOCKED POSITION WITH SR X3. CALL LIGHT KEPT WITHIN REACH. WILL ENDORSE TO INCOMING NIGHT NURSE FOR YASHIRA. Addendum: 06/30/19 at 1838 by KWESI DUONG RN WRONG HEADING. THIS IS CLOSING NOTES.
--- NOTE | 2019-06-30 18:38 | NUR ---
MS RN CLOSING NOTES PT REMAINS AWAKE IN BED. A/O X3-4, AMBULATORY. TOLERATING RA, WITH NO ACUTE RESPIRATORY DISTRESS. PT DENIES PAIN OR DISCOMFORT AT THIS MOMENT. PT AWARE OF RESULTS OF TODAY'S PROCEDURE XR SMALL BOWEL FOLLOW THROUGH AND CT ABDOMEN AND PELVIS; PT WAS INFORMED BY MASTER BREWER/AP ABOUT PLAN OF CARE. IVF D5 NS AT 75ML/HR TO RFA G22, INTACT AND FLUID INFUSING WELL. ALL NEEDS AND CARE ATTENDED. PT KEPT COMFORTABLE. PT'S BED IN LOWEST, LOCKED POSITION WITH SR X3. CALL LIGHT KEPT WITHIN REACH. WILL ENDORSE TO INCOMING NIGHT NURSE FOR YASHIRA.
--- NOTE | 2019-06-30 19:30 | NUR ---
RN OPENING NOTES RECEIVED PATIENT FROM [facility]. PATIENT RESTING IN BED COMFORTABLY AT THIS TIME. PATIENT A/O X 3-4, AMBULATORY. PATIENT ON RA, WITH NO RESPIRATORY DISTRESS. DENIES SHORTNESS OF BREATH. PATIENT ASKING FOR PAIN MEDICATION FOR PAIN 07/01, WILL GIVE PAIN MEDICATION SHORTLY. IV SITE RFA #22G INTACT AND PATENT, WITH IVF D5 NS AT 75 ML/HR. SAFETY PRECAUTIONS IMPLEMENTED; CALL LIGHT WITHIN REACH, BED LOWEST POSITION, BED LOCKED, SIDE RAILS UP X2. WILL CONTINUE TO MONITOR PATIENT.
--- NOTE | 2019-06-30 19:45 | NUR ---
RN NOTES PATIENT REQUESTED DILAUDID FOR PAIN. VITAL SIGNS ARE 107/65, PULSE 87, RESPIRATIONS 18, TEMP 98.3, O2 SAT 100% ON RA. PATIENT INFORMED ABOUT THE RISKS OF TAKING DILAUDID. PATIENT UNDERSTANDS THE RISKS. WILL CONTINUE TO MONITOR PATIENT.
[2019-06-30 20:00] VITALS: BP 107/65
[2019-06-30] MEDS: ZOLPIDEM TARTRATE 5 MG TABLET PO PRN (21:15)
--- NOTE | 2019-06-30 21:20 | NUR ---
RN NOTES PATIENT REQUESTED AMBIEN FOR SLEEP. VITAL SIGNS ARE 110/71, PULSE 81, O2 100% ON RA, RESPIRATIONS 18. PATIENT INFORMED ABOUT THE RISKS FOR TAKING AMBIEN. PATIENT UNDERSTANDS THE RISKS. WILL CONTINUE TO MONITOR PATIENT.
[2019-07-01] MEDS: HYDROMORPHONE INJ 2 MG/ML DISP.SYRIN IV PRN ×3 (01:14→09:07)
[2019-07-01] MEDS: PIPERACILLIN /TAZOBACTAM 3.375 G in IV D5W 50 ML IV SCH ×2 (04:24→09:05)
--- NOTE | 2019-07-01 05:41 | NUR ---
RN NOTES PATIENT REQUESTED DILAUDID FOR PAIN 8/10 IN ABDOMINAL AREA. V/S PRIOR TO ADMINISTRATION: BP 105/63, PULSE 81, RESPIRATIONS 18, O2 SAT 98% ON RA. PATIENT EDUCATED ON THE RISKS OF TAKING DILAUDID. PATIENT UNDERSTANDS THE FOLLOWING RISKS ASSOCIATED WITH DILAUDID. WILL CONTINUE TO MONITOR.
[2019-07-01] MEDS: METRONIDAZOLE 500MG/ NS 100ML 500 MG in PREMIX 1 EA IV SCH ×2 (06:10→15:00)
[2019-07-01 06:19] LABS: ALBUMIN 2.6 g/dL (3.4-5.0); BILIRUBIN,TOTAL 1.1 mg/dL (0.2-1.0); CALCIUM, SERUM 8.3 mg/dL (8.5-10.1); POTASSIUM 4.2 mmol/L (3.5-5.1); TOTAL PROTEIN, SERUM 5.4 g/dL (6.4-8.2)
[2019-07-01 06:36] LABS: BASOPHILS % (AUTO) 0.5 % (0.0-2.0); EOSINOPHILS % (AUTO) 2.8 % (0.0-6.0); HEMATOCRIT 35 % (39-51); HEMOGLOBIN 11.5 g/dL (13.5-17.5); LYMPHOCYTES # (AUTO) 1.3 /CMM (0.8-4.8); LYMPHOCYTES % (AUTO) 25.4 % (20.0-44.0); MEAN CORPUSCULAR HGB CONC 33 g/dl (31.0-36.0); MEAN CORPUSCULAR VOLUME 88 fL (80-96); MONOCYTES # (AUTO) 0.4 /CMM (0.1-1.30); MONOCYTES % (AUTO) 8.5 % (2.0-12.0); NEUTROPHILS # (AUTO) 3.2 /CMM (1.8-8.9); NEUTROPHILS % (AUTO) 62.8 % (43.0-81.0); PLATELET COUNT (AUTO) 248 /CMM (150-450); RED BLOOD CELL COUNT(AUTO) 3.94 MIL/uL (4.5-6.0); WHITE BLOOD COUNT (AUTO) 5.1 K/uL (4.3-11.0)
--- NOTE | 2019-07-01 06:42 | NUR ---
RN CLOSING NOTES PATIENT CURRENTLY ASLEEP, RESTING IN BED, EASILY AROUSABLE TO VOICE. NO SIGNS OF RESPIRATORY DISTRESS. DENIES SHORTNESS OF BREATH. VITAL SIGNS STABLE. NO COMPLAINTS OF PAIN OR DISCOMFORT AT THIS TIME. NO COMPLAINTS OF N/V THROUGHOUT THE SHIFT. ALL DUE MEDICATIONS GIVEN AND ALL NEEDS MET AT THIS TIME. PATIENT COMFORTABLE. IV SITE INTACT AND PATENT, NO SIGNS OF INFILTRATION, IVF INFUSING. SAFETY PRECAUTIONS IMPLEMENTED; CALL LIGHT WITHIN REACH, BED LOWEST POSITION, BED LOCKED, SIDE RAILS UP X2. WILL ENDORSE TO DAY NURSE FOR CONTINUITY OF CARE.
--- NOTE | 2019-07-01 07:25 | NUR ---
RN MS OPENING NOTES patient received on room air, no sob noted, patient remains a/o x4. Patient denies pain at this time. IVF flowing at this time with no obstruction. Patient lying down comfortably on bed. Bed at the lowest setting, call light within reach, side rails up x2.
[2019-07-01 08:00] VITALS: BP 107/67
[2019-07-01] MEDS: IV D5/ 0.9% NACL 1,000 ML IV PRN (11:43)
--- NOTE | 2019-07-01 12:48 | NUR ---
rn ms notes REPORT GIVEN TO DEANNA MUNSON FOR YASHIRA
--- NOTE | 2019-07-01 15:40 | NUR ---
MS REPORT CHECKER NOTES PT TO DISCHARGE HOME, ACCOMPANIED BY MOTHER. PT A/O X3-. TOLERATING RA, WITH NO ACUTE RESPIRATORY DISTRESS NOTED. PT DENIES ANY PAIN OR DISCOMFORT AT THE TIME OF DISCHARGE. PT SIGNED OWN DISCHARGE INSTRUCTIONS AND INVENTOR LIST. ALL BELONGINGS WITH PT. NO PICTURES TAKEN AND FILED FOR SKIN ISSUES, PT REFUSED AND STATING NO NEED TO DO THAT. RN EXPLAINED FACILITY POLICY, PT STILL INSIST TO REFUSED. ALL NEEDS ATTENDED. PIV TO RFA REMOVED AND APPLIED DRESSING. VS STABLE. PT ACCOMPANIED BY MOTHER AND ESCORTED TO LOBBY AT 1535. CN/MCKENZIE AND CHISEL TRIMMER/AP AWARE OF DISCHARGE.
== END 2019-07-01 15:35 | disposition home or self-care (01) | DRG 247 ==
LOC: MEDSG1 11:09 → MED 11:28
PROVIDERS: ADMIT Hospitalist; ATTEND Hospitalist
DX: K56.609 Unspecified intestinal obstruction, unspecified as to partial versus complete obstruction (principal); E44.0 Moderate protein-calorie malnutrition; K63.2 Fistula of intestine; D63.8 Anemia in other chronic diseases classified elsewhere; J45.909 Unspecified asthma, uncomplicated; Z91.19 Patient's noncompliance with other medical treatment and regimen; Z87.891 Personal history of nicotine dependence; Z79.51 Long term (current) use of inhaled steroids; Z79.899 Other long term (current) drug therapy; F15.11 Other stimulant abuse, in remission; D72.829 Elevated white blood cell count, unspecified; Z82.49 Family history of ischemic heart disease and other diseases of the circulatory system; Z83.3 Family history of diabetes mellitus; K58.0 Irritable bowel syndrome with diarrhea
CPT/HCPCS: 36415; 74250-TC; 80048-TC; 80053-TC; 80061-TC; 83540-TC; 83735-TC; 84100-TC; 84443-TC; 85025-TC; 85730-TC; 87081-TC; A4216; G0378; J1170; J2543; J3490; J7042; J7060; Q9963

== ENCOUNTER 2019-07-24 13:33 | Inpatient (IN) | payer OTHER ==
[~2019-07-24] VITALS: Ht 172.7 cm; Wt 64.4 kg
[~2019-07-24 13:33] MED LIST changes: +OXYC-128 PO
--- NOTE | 2019-07-24 14:10 | NUR ---
RN NOTES RECEIVED PATIENT FROM [facility]. PATIENT AMBULATORY. ABLE TO MOVE SELF FROM [place] TO BED. A/A/0X4, ABLE TO MAKE NEEDS KNOWN. NO ROOM AIR, NO SOB NOTED. NO INDICATION OF PAIN NOTED. PATIENT ORIENTED TO THE UNIT AND THE USE OF CALL LIGHT. SAFETY MEASURES OBSERVED AND MAINTAINED. INFORMED MD THAT NURSE STILL WAITING FOR THE ADMITTING ORDERS AND WILL CARRY OUT ONCE AVAILABLE. DR. DUTTA INFORM ABOUT THE PATIENT'S ARRIVAL
[2019-07-24] MEDS ORDERED: ALBUTEROL FS 2.5 MG/3 ML VIAL.NEB NEB PRN (15:00)
[2019-07-24] MEDS ORDERED: MAG HYDROX/AL HYDROX/SIMETH 30 ML UDC PO PRN (18:00)
[2019-07-24] MEDS ORDERED: Z GUARD REMEDY 2 OZ OINT TP PRN (18:00)
[2019-07-24] MEDS ORDERED: ACETAMINOPHEN 325 MG TABLET PO PRN (18:00)
[2019-07-24] MEDS ORDERED: MAGNESIUM HYDROXIDE 30 ML UDC PO PRN (18:00)
[2019-07-24] MEDS: IV NS 0.9% 1,000 ML IV PRN (18:03)
[2019-07-24] MEDS: HYDROMORPHONE INJ 2 MG/ML DISP.SYRIN IV PRN ×2 (18:10→23:29)
[2019-07-24] MEDS: methylPREDNISolone SOD SUCC 125 MG/2ML VIAL IV SCH (18:17)
[2019-07-24] MEDS: PANTOPRAZOLE 40 MG TABLET.DR PO SCH (18:18)
--- NOTE | 2019-07-24 19:22 | NUR ---
RN NOTES ENDORSED FOR CONTINUITY OF CARE. NOT ON ANY FORM OF DISTRESS. ALL NURSING NEEDS ATTENDED AND MET.
--- NOTE | 2019-07-24 19:22 | NUR ---
RECIVED REPORT FROM DANNY, PATIENT JUST ADMITTED TODAY FROM [facility] FOR CHIEF COMPLAINT OF ABDOMINAL PAIN. PT IS ALERT AND ORIENTED TIMES FOUR, AMBULATORY AND APPEARS COMFORTABLE IN NO ACUTE DISTRESS. LEFT ARM GAUGE 22 IN TACT RUNNING NS 100 ML/HR PT TOLERATING WELL. ALL SAFETY MEASURES IN PLACE AND WILL CONTINUE TO MONITER AND CARRY OUT PLAN OF CARE.
--- NOTE | 2019-07-24 19:55 | NUR ---
COLLECTED PT'S HOME MEDICATIONS FROM HIM- EXPLAINED IT WILL BE TURNED INTO PHARMACY IN THE AM AND ENDORSED TO THE AM SHIFT FOR CONTINUITY OF CARE AND DISBURSMENT. SHEET IN THE CHART.
[2019-07-24] MEDS: HYDROCODONE/APAP 5/325MG 1 EACH TABLET PO PRN (20:53)
--- NOTE | 2019-07-24 23:59 | NUR ---
NEW SITE PLACED. FROM LEFT FOREARM TO RIGHT FOREAM GAUGE 24, FLUSHING WELL AND IN TACT. NS RUNNING 100 ML/HR.
[2019-07-25] MEDS: IV NS 0.9% 1,000 ML IV PRN ×2 (03:42→14:17)
[2019-07-25] MEDS: HYDROMORPHONE INJ 2 MG/ML DISP.SYRIN IV PRN ×5 (03:52→21:25)
[2019-07-25 04:00] VITALS: BP 107/59
--- NOTE | 2019-07-25 06:45 | NUR ---
PT ALERT AND ORIENTED TIMES FOUR. AMBULATORY, VITALS STABLE THROUGOUT SHIFT. ALL NEEDS MET. RIGHT FOREARM IV NS 100 ML/HR RUNNING, PT TOLERATING FLUIDS WELL. PAIN MANAGEMENT MET. SAFETY PRECAUTIONS IN PLACE. HOME MEDS COLLECTED AND PHARMACY KNOWS TO RECONCILE. PATIENT STATES HE ALSO TAKES SEROQUIL TIMES 1 PER DAY. DIDNT STATE DOSAGE, BUT MEDICATION NOT INCLUDED IN THE BAG OF MEDICATION. FULL LIQUID DIET IN PLACE UNTIL MD MAKES CHANGES. WILL ENDORSE TO AM SHIFT FOR CONTINUITY OF CARE AND TO MONITER PT. BED IN LOW LOCKED POSTION CALL LIGHT IN PLACE.
--- NOTE | 2019-07-25 07:25 | NUR ---
MS/RN OPENING NOTES RECEIVED PATIENT IN BED SLEEPING COMFORTABLY. EASILY AROUSABLE. NO ACUTE DISTRESS AT THIS TIME. RESPIRATION EVEN AND UNLABORED. SKIN IS DRY WARM TO TOUCH. PATIENT NOTED WITH IV ACCESS ON RFA. INTACT AND PATENT. FLUSHING WELL. NO S/S OF INFECTION OR INFILTRATION. ALL NEEDS ANTICIPATED. CALL LIGHT WITHIN REACHED. BED LOCKED AND IN LOWEST POSITION. SAFETY MAINTAINED. PLAN OF CARE DISCUSSED. WILL CONTINUE TO MONITOR CLOSELY.
[2019-07-25 07:29] LABS: BASOPHILS % (AUTO) 0.3 % (0.0-2.0); HEMATOCRIT 33 % (39-51); HEMOGLOBIN 10.8 g/dL (13.5-17.5); LYMPHOCYTES # (AUTO) 1.2 /CMM (0.8-4.8); LYMPHOCYTES % (AUTO) 12.1 % (20.0-44.0); MEAN CORPUSCULAR HGB CONC 33 g/dl (31.0-36.0); MEAN CORPUSCULAR VOLUME 90 fL (80-96); MONOCYTES # (AUTO) 0.8 /CMM (0.1-1.30); NEUTROPHILS # (AUTO) 7.8 /CMM (1.8-8.9); NEUTROPHILS % (AUTO) 79.6 % (43.0-81.0); PLATELET COUNT (AUTO) 351 /CMM (150-450); RED BLOOD CELL COUNT(AUTO) 3.61 MIL/uL (4.5-6.0); WHITE BLOOD COUNT (AUTO) 9.8 K/uL (4.3-11.0)
[2019-07-25 07:37] LABS: CALCIUM, SERUM 8.2 mg/dL (8.5-10.1); CREATININE 0.8 mg/dL (0.6-1.3); PHOSPHORUS 3.6 mg/dL (2.5-4.9); POTASSIUM 4.1 mmol/L (3.5-5.1)
[2019-07-25] MEDS: PANTOPRAZOLE 40 MG TABLET.DR PO SCH (07:56)
[2019-07-25 08:00] VITALS: BP 105/60
[2019-07-25] MEDS: methylPREDNISolone SOD SUCC 125 MG/2ML VIAL IV SCH ×3 (08:36→16:35)
--- NOTE | 2019-07-25 11:50 | NUR ---
MS/RN NOTES PATIENT WAS SEEN AND EVALUATED BY DR. RUIZ AT THIS TIME. PATIENT REMAINS IN STABLE CONDITION. WILL CONTINUE TO MONITOR.
[2019-07-25] MEDS: DOCUSATE SODIUM 100 MG CAPSULE PO SCH ×2 (14:13→16:34)
[2019-07-25] MEDS: SENNOSIDES/DOCUSATE SODIUM 1 TAB TABLET PO SCH (14:13)
[2019-07-25] MEDS: ONDANSETRON HCL/PF 4 MG/2 ML VIAL IVP PRN (14:20)
[2019-07-25 16:00] VITALS: BP 117/68
--- NOTE | 2019-07-25 19:10 | NUR ---
MS/RN OPENING NOTES PATIENT IN BED. COMFORTABLE AND ALERT AND ORIENTED TIMES 4 AMBULATORY. WILL PROVIDE COMFORT AND SAFETY THROUGHOUT THE SHIFT. NOTED WITH IV ACCESS ON RFA. INTACT AND PATENT. FLUSHING WELL. NO S/S OF INFECTION OR INFILTRATION. ALL NEEDS TO BE MET. WILL KEEP CLEAN AND DRY. CALL LIGHT WITHIN REACHED. BED LOCKED AND IN LOWEST POSITION. SAFETY WILL BE MAINTAINED. WILL CONTINUE TO MONITOR.
--- NOTE | 2019-07-25 19:12 | NUR ---
MS/RN CLOSING NOTES PATIENT CONTINUES TO REMAIN IN STABLE CONDITION. PROVIDED COMFORT AND SAFETY THROUGHOUT THE SHIFT. NOTED WITH IV ACCESS ON RFA. INTACT AND PATENT. FLUSHING WELL. NO S/S OF INFECTION OR INFILTRATION. ALL NEEDS ANTICIPATED. KEPT CLEAN AND DRY. CALL LIGHT WITHIN REACHED. BED LOCKED AND IN LOWEST POSITION. SAFETY MAINTAINED. WILL CONTINUE TO MONITOR. ENDORSED TO PM SHIFT FOR YASHIRA.
[2019-07-25 20:00] VITALS: BP 122/94
[2019-07-25] MEDS: ZOLPIDEM TARTRATE 5 MG TABLET PO PRN (21:25)
[2019-07-26] MEDS: HYDROMORPHONE INJ 2 MG/ML DISP.SYRIN IV PRN ×4 (01:59→16:09)
[2019-07-26] MEDS: IV NS 0.9% 1,000 ML IV PRN ×2 (02:01→13:18)
[2019-07-26 04:00] VITALS: BP 122/68
--- NOTE | 2019-07-26 06:27 | NUR ---
MS RN NOTES: PT IN BED ASLEEP. NO CHANGES DURING MY SHIFT. PT MADE COMFORTABLE AND ALL NEEDS MET. PT IS ALERT AND ORIENTED TIMES FOUR. AMBULATORY, VITALS STABLE THROUGOUT SHIFT. ULL LIQUID DIET IN PLACE UNTIL MD MAKES CHANGES. WILL ENDORSE TO AM SHIFT FOR CONTINUITY OF CARE AND TO MONITER PT. BED IN LOW LOCKED POSTION CALL LIGHT IN PLACE WILL ENDORSE TO AM NURSE TO CONTINUE PLAN OF CARE.
--- NOTE | 2019-07-26 07:25 | NUR ---
RN OPENING NOTES RECEIVED PATIENT RESTING IN BED COMFORTABLY. HE IS AOX4, VERBAL AND AMBULATORY. HE IS ON RA, TOLERATING WELL, SHOWS NO S/SX OF RESP DISTRESS OR SOB. SKIN IS INTACT. HE IS ON A CLEAR LIQUID DIET. HE HAS A RFA 22 G INFUSING NS AT 100 ML/HR. SAFETY MEASURES HAVE BEEN IMPLEMENTED, CALL LIGHT WITHIN REACH, BED IN LOWEST AND LOCKED POSITION, SIDE RAILS UP X2, WILL CONTINUE TO MONITOR FOR ANY CHANGES.
[2019-07-26] MEDS: PANTOPRAZOLE 40 MG TABLET.DR PO SCH (07:32)
[2019-07-26 08:00] VITALS: BP 125/71
[2019-07-26] MEDS: DOCUSATE SODIUM 100 MG CAPSULE PO SCH ×3 (08:54→16:09)
[2019-07-26] MEDS: SENNOSIDES/DOCUSATE SODIUM 1 TAB TABLET PO SCH (08:54)
[2019-07-26] MEDS: methylPREDNISolone SOD SUCC 125 MG/2ML VIAL IV SCH ×3 (08:54→16:09)
--- NOTE | 2019-07-26 10:30 | NUR ---
IV SITE ON RFA HAS BECOME INFILTRATED. IV SITE HAS BEEN REMOVED, COLD COMPRESS APPLIED. NEW 24 G SALINE LOCK STARTED ON LEFT ARM, PATENT AND INTACT.
[2019-07-26] MEDS: ONDANSETRON HCL/PF 4 MG/2 ML VIAL IVP PRN (11:49)
[2019-07-26 16:00] VITALS: BP 111/56
[2019-07-26] MEDS ORDERED: KETOROLAC TROMETHAMINE INJ 30 MG/ML VIAL IV PRN (18:30)
--- NOTE | 2019-07-26 18:47 | NUR ---
SMALL BOWEL FOLLOW THROUGH HELD PER GILBERT MACIAS NP, ORDER
--- NOTE | 2019-07-26 19:20 | NUR ---
RN OPENING NOTES PT IN BED RESTING COMFORTABLY. ALERT AND ORIENTED TIMES FOUR. AMBULATORY AND ABLE TO MAKE NEEDS AWARE. NS RUNNNING AT 100 ML/HR. NO CURRENT COMPLAINTS OF PAIN OR NAUSEA. BED IN LOW LOCKED POSITION SAFETY PRECATIONS IN PLACE. WILL CONTINUE TO MONITER AND CARRY OUT PLAN OF CARE.
--- NOTE | 2019-07-26 19:33 | NUR ---
RN CLOSING NOTES PATIENT IS RESTING IN BED COMFORTABLY, DENIES ANY PAIN OR DISCOMFORT AT THIS TIME. HE WAS UNABLE TO HAVE A BM DURING MY SHIFT. PATIENT NEEDS MET. SAFETY MEASURES HAVE BEEN IMPLEMENTED, CALL LIGHT WITHIN REACH, BED IN LOWEST AND LOCKED POSITION, SIDE RAILS UP X2, WILL ENDORSE TO NIGHTSHIFT RN FOR CONTINUAL CARE.
[2019-07-26 20:00] VITALS: BP 122/75
[2019-07-26] MEDS: METRONIDAZOLE 500 MG TABLET PO SCH (20:41)
[2019-07-26] MEDS: CIPROFLOXACIN HCL 500 MG TABLET PO SCH (20:41)
[2019-07-26] MEDS: HYDROCODONE/APAP 5/325MG 1 EACH TABLET PO PRN (20:45)
[2019-07-26] MEDS: QUETIAPINE FUMARATE 25 MG TABLET PO SCH (21:40)
[2019-07-26] MEDS: ZOLPIDEM TARTRATE 5 MG TABLET PO PRN (21:41)
[2019-07-27] VITALS: BP 127/76
[2019-07-27] MEDS: methylPREDNISolone SOD SUCC 40 MG/ML VIAL IV SCH ×3 (00:15→17:00)
[2019-07-27] MEDS: METRONIDAZOLE 500 MG TABLET PO SCH ×3 (04:37→20:39)
--- NOTE | 2019-07-27 06:50 | NUR ---
RN CLOSING NOTES PATIENT IS RESTING IN BED ASLEEP. ENCOURAGED PO OF LIQUID DIET INTAKE DURING MY SHIFT. WILL ENDORSE TO NEXT SHIFT ABOUT SMALL BOWEL XR OF SMALL BOWEL FOLLOW UP. ALL NEEDS MET. SAFETY MEASURES HAVE BEEN IMPLEMENTED, CALL LIGHT WITHIN REACH, BED IN LOWEST AND LOCKED POSITION, SIDE RAILS UP X2, WILL ENDORSE TO NIGHTSHIFT AM FOR CONTINUAL CARE
[2019-07-27] MEDS: PANTOPRAZOLE 40 MG TABLET.DR PO SCH (07:30)
[2019-07-27 08:00] VITALS: BP 111/64
--- NOTE | 2019-07-27 08:35 | NUR ---
PATIENT PICKED UP BY RADIOLOGY STAFF FOR PROCEDURE IN STABLE CONDITION
[2019-07-27] MEDS: CIPROFLOXACIN HCL 500 MG TABLET PO SCH ×2 (08:56→20:39)
[2019-07-27] MEDS: SENNOSIDES/DOCUSATE SODIUM 1 TAB TABLET PO SCH (08:56)
[2019-07-27] MEDS: DOCUSATE SODIUM 100 MG CAPSULE PO SCH ×3 (08:56→17:00)
[2019-07-27] MEDS ORDERED: DIATR MEGLU/DIATRIZOATE SODIUM 120 ML BOTTLE (GASTROGRAPHIN) ONE (09:08)
--- NOTE | 2019-07-27 09:10 | NUR ---
patient back to unit .The patient refused oral contrast therefore small bowel follow through exam was not obtained
[2019-07-27] MEDS ORDERED: CIPR500T5 PO (13:51)
[2019-07-27 14:06] LABS: BASOPHILS % (AUTO) 0.3 % (0.0-2.0); HEMATOCRIT 32 % (39-51); HEMOGLOBIN 10.8 g/dL (13.5-17.5); LYMPHOCYTES # (AUTO) 1.8 /CMM (0.8-4.8); LYMPHOCYTES % (AUTO) 22.1 % (20.0-44.0); MEAN CORPUSCULAR HGB CONC 33 g/dl (31.0-36.0); MEAN CORPUSCULAR VOLUME 88 fL (80-96); MONOCYTES % (AUTO) 12.9 % (2.0-12.0); NEUTROPHILS # (AUTO) 5.2 /CMM (1.8-8.9); NEUTROPHILS % (AUTO) 64.7 % (43.0-81.0); PLATELET COUNT (AUTO) 272 /CMM (150-450); RED BLOOD CELL COUNT(AUTO) 3.69 MIL/uL (4.5-6.0)
[2019-07-27 14:11] LABS: CALCIUM, SERUM 7.6 mg/dL (8.5-10.1); CREATININE 0.7 mg/dL (0.6-1.3); POTASSIUM 3.6 mmol/L (3.5-5.1)
[2019-07-27 16:00] VITALS: BP_SYST 111; BP_SYST 113; BP_DIAS 64; BP_DIAS 76
--- NOTE | 2019-07-27 18:29 | NUR ---
Patient cleared for D/C to home by . ALL D/C paperwork is done. Patient's mother will be able to pick him up around 2100. Patient"s home meds picked up from pharmacy. IV line removed. Will endorse to next shift for YASHIRA.
[2019-07-27 20:00] VITALS: BP 112/66
--- NOTE | 2019-07-27 20:00 | NUR ---
ms rn notes received pts in bed awake alert and ambulatory , able to make needs known , no sob no distress noted breathing even and unlabored , r/a sating 98%all needs attended too call light within reach , pts for discharge home today awaiting for mother to slate picker pts.
[2019-07-27] MEDS: QUETIAPINE FUMARATE 25 MG TABLET PO SCH (21:07)
--- NOTE | 2019-07-27 21:24 | NUR ---
ms rn notes due meds given as ordered , v/ s stable afebrile .
--- NOTE | 2019-07-27 21:25 | NUR ---
ms rn notes discharged instruction given to pts and mother verbalized understanding , pts discharge home at 2120 hrs with complete belongings ,home medication given to pts .pts left the hospital in stable condition .
[2019-07-28] MEDS ORDERED: ONDA4TAB5 PO (22:47)
[2019-07-28] MEDS ORDERED: PRED50TA PO (22:47)
[2019-07-28] MEDS ORDERED: QUET50TA PO (22:47)
== END 2019-07-27 21:20 | disposition home or self-care (01) | DRG 245 ==
LOC: MEDSG1 14:04
PROVIDERS: ADMIT Internal Medicine; ATTEND Nurse Practitioner Acute Care
DX: K50.912 Crohn's disease, unspecified, with intestinal obstruction (principal); K63.2 Fistula of intestine; D63.8 Anemia in other chronic diseases classified elsewhere; J45.909 Unspecified asthma, uncomplicated; Z87.891 Personal history of nicotine dependence; Z82.49 Family history of ischemic heart disease and other diseases of the circulatory system; Z83.3 Family history of diabetes mellitus
CPT/HCPCS: 36415; 71045-TC; 74018; 80048-TC; 83735-TC; 84100-TC; 85025-TC; 87081-TC; G0378; J1170; J2405; J2920; J2930; J3490; J7030; Q9963

== ENCOUNTER 2019-07-28 16:27 | Inpatient (IN) | payer OTHER ==
[~2019-07-28] VITALS: Ht 172.7 cm; Wt 57.6 kg
[~2019-07-28 16:27] MED LIST changes: +CIPR500T5 PO; -MESALAMINE PO; -OXYC-128 PO; -PRED20TA PO
[2019-07-28 22:00] VITALS: BP 116/69
--- NOTE | 2019-07-28 22:30 | NUR ---
RN NOTES PATIENT ARRIVED IN THE UNIT DIRECT ADMIT FROM [facility], TRANSPORTED VIA GURNEY, ALERT ORIENTED X4, IV ACCESS ON HIS LEFT AC G#22 INTACT AND PATENT, REPOSITIONED FOR COMFORT, SAFETY MEASURES IN PLACE, ORIENTED TO UNIT AND USE OF CALL LIGHT, INITIAL ADMISSION ASSESSMENT INITIATED, ALL NEEDS ANTICIPATED, PROVIDED COMFORT, VITAL SIGNS TAKEN AND RECORDED. JOINT CREASER, ELIZABETH PUGH,ROSANA INFORMED, AWAITING FOR ADMITTING ORDERS. WILL CONTINUE TO MONITOR ACCORDINGLY.
[2019-07-28] MEDS ORDERED: ONDA4TAB5 PO (22:47)
[2019-07-28] MEDS ORDERED: PRED50TA PO (22:47)
[2019-07-28] MEDS ORDERED: QUET50TA PO (22:47)
[2019-07-29] MEDS ORDERED: MAG HYDROX/AL HYDROX/SIMETH 30 ML UDC PO PRN
[2019-07-29] MEDS ORDERED: ACETAMINOPHEN 325 MG TABLET PO PRN
[2019-07-29] MEDS ORDERED: MORPHINE SULFATE INJ 2 MG/ML DISP.SYRIN IV PRN
[2019-07-29] MEDS ORDERED: ONDANSETRON HCL/PF 4 MG/2 ML VIAL IVP PRN
[2019-07-29] MEDS ORDERED: Z GUARD REMEDY 2 OZ OINT TP PRN
[2019-07-29] MEDS ORDERED: MAGNESIUM HYDROXIDE 30 ML UDC PO PRN
[2019-07-29] MEDS: IV D5/0.45 NACL 1,000 ML IV PRN ×2 (00:26→21:03)
[2019-07-29] MEDS ORDERED: SULFAMETHOXAZOLE/TRIMETHOPRIM 10 ML in IV D5W 250 ML IV SCH (00:30)
--- NOTE | 2019-07-29 01:00 | NUR ---
RN NOTES PATIENT REFUSED NGT INSERTION, ROSANA PUGH MADE AWARE.
[2019-07-29] MEDS ORDERED: METRONIDAZOLE 500MG/ NS 100ML 100 ML IV ONE (01:30)
[2019-07-29] MEDS: METRONIDAZOLE 500MG/ NS 100ML 500 MG in PREMIX 1 EA IV SCH ×3 (01:42→16:26)
[2019-07-29] MEDS ORDERED: CIPROFLOXACIN IV RTU 200 MG in PREMIX 1 EA IV SCH (02:00)
[2019-07-29] MEDS ORDERED: CIPROFLOXACIN IV RTU 200 MG in PREMIX 1 EA IV ONE (04:00)
[2019-07-29] MEDS ORDERED: CIPROFLOXACIN IV RTU 0 ML IV ONE (04:17)
[2019-07-29 07:15] LABS: BASOPHILS % (AUTO) 0.5 % (0.0-2.0); EOSINOPHILS % (AUTO) 0.4 % (0.0-6.0); HEMATOCRIT 32 % (39-51); LYMPHOCYTES # (AUTO) 2.1 /CMM (0.8-4.8); LYMPHOCYTES % (AUTO) 24.8 % (20.0-44.0); MEAN CORPUSCULAR HGB CONC 34 g/dl (31.0-36.0); MEAN CORPUSCULAR VOLUME 88 fL (80-96); MONOCYTES # (AUTO) 0.7 /CMM (0.1-1.30); MONOCYTES % (AUTO) 8.6 % (2.0-12.0); NEUTROPHILS # (AUTO) 5.7 /CMM (1.8-8.9); NEUTROPHILS % (AUTO) 65.7 % (43.0-81.0); PLATELET COUNT (AUTO) 269 /CMM (150-450); RED BLOOD CELL COUNT(AUTO) 3.69 MIL/uL (4.5-6.0); WHITE BLOOD COUNT (AUTO) 8.6 K/uL (4.3-11.0)
--- NOTE | 2019-07-29 07:24 | NUR ---
RN NOTES PER PHARMACY VA[facility], NEED A BASELINE EKG PRIOR TO GIVING CIPROFLOXACIN IV ANTIBIOTIC SINCE PATIENT IS TAKING SEROQUEL, PATIENT DENIES CARDIAC PROBLEMS, INFORMED INDUSTRIAL ILLUMINATING ENGINEER ELIZABETH PUGH NP. ENDORSED TO AM NURSE TO FOLLOW UP.
--- NOTE | 2019-07-29 07:26 | NUR ---
RN NOTES ALL NEEDS ATTENDED AND MET ABLE TO REST AND SLEPT AT INTERVALS, PATIENT FOR XRAY SMALL BOWEL FOLLOW THROUGH, ENDORSED TO AM NURSE PASTORA TO FOLLOW UP, SAFETY MEASURES IN PLACED, MAINTAINED ON NPO, FOR CONTINOUS CARE AND MANAGEMENT.
[2019-07-29 07:34] LABS: CREATININE 0.6 mg/dL (0.6-1.3); PHOSPHORUS 3.6 mg/dL (2.5-4.9); POTASSIUM 3.5 mmol/L (3.5-5.1)
--- NOTE | 2019-07-29 07:44 | NUR ---
RN MS OPENING NOTES Patient received on room air, no sob noted, patient remains a/o x4 and denies pain at this time. Patient sleeping comfortably in bed. Patient remains NPO at this time. Awaiting EKG baseline order. Bed at the lowest setting, call light within reach.
[2019-07-29 07:59] LABS: THYROID STIMULATING HORMONE 0.883 uIU/mL (0.358-3.74)
[2019-07-29 08:00] VITALS: BP 103/60
--- NOTE | 2019-07-29 08:38 | NUR ---
RN NOTES Called pharmacy and gave the EKG results.
[2019-07-29] MEDS: methylPREDNISolone SOD SUCC 40 MG/ML VIAL IV SCH ×3 (08:58→16:20)
[2019-07-29] MEDS: FAMOTIDINE/PF INJ 20 MG/2 ML VIAL IV SCH ×2 (08:58→20:41)
[2019-07-29] MEDS: DOCUSATE SODIUM 100 MG CAPSULE PO SCH ×2 (09:00→16:24)
[2019-07-29] MEDS: FERROUS SULFATE (325 MG) 325 MG/TAB TABLET PO SCH (09:00)
[2019-07-29] MEDS ORDERED: SULFAMETH/TRIMETH 800/160 MG 1 UDTAB TABLET PO SCH (09:00)
[2019-07-29] MEDS ORDERED: DIATR MEGLU/DIATRIZOATE SODIUM 120 ML BOTTLE (GASTROGRAPHIN) ONE (09:16)
[2019-07-29] MEDS: CIPROFLOXACIN IV RTU 200 MG in PREMIX 1 EA IV SCH ×2 (09:59→20:39)
--- NOTE | 2019-07-29 15:30 | NUR ---
RN NOTES Patient refused to swallow the contrast for his SBO, MD aware.
[2019-07-29 16:00] VITALS: BP 106/72
[2019-07-29] MEDS: MORPHINE SULFATE INJ 2 MG/ML DISP.SYRIN IV PRN ×2 (16:20→22:46)
[2019-07-29] MEDS: QUETIAPINE FUMARATE 25 MG TABLET PO SCH (18:00)
--- NOTE | 2019-07-29 18:15 | NUR ---
RN MS CLOSING NOTES Patient remains on room air, no sob noted, patient remains a/o x4 and denies pain at this time. Patient remains NPO at this time, small bowel through to be repeated. Left AC #22 running with d5 1/2 NS @75 mL per hour. Patient refused the contrast to be swallowed, Lorrie WAYNE aware. Bed at the lowest setting, call light within reach, will give report to BRUNA RN for YASHIRA bedside.
--- NOTE | 2019-07-29 19:55 | NUR ---
RN NOTES RECEIVED PATIENT AWAKE ALERT ORIENTED, SAFETY MEASURES IN PLACE, MAINTAINED ON NPO, IV ACCESS INTACT AND PATENT, AMBULATORY, USES URINAL, DISCUSSED ABOUT PAIN MEDICATION SCHEDULE PRN AND NOT A ROUTINE, PATIENT VERBALIZES UNDERSTANDING, ALL NEEDS ATTENDED, CALL LIGHT WITHIN EASY REACH, WILL CONTINUE TO MONITOR ACCORDINGLY.
[2019-07-29 20:00] VITALS: BP 113/72
--- NOTE | 2019-07-29 22:35 | NUR ---
RN NOTES EMPHASIZED TO PATIENT ON STRICT NPO PER BRAKE ASSEMBLER ELIZABETH PUGH.
--- NOTE | 2019-07-29 22:46 | NUR ---
RN NOTES PATIENT COMPLAINT OF ABDOMINAL PAIN, NON PHARMACOLOGICAL INTERVENTION INITIATED HOWEVER PAIN LEVEL 7-8/10 CANNOT TOLERATE, MORPHINE 0.5 MG IV GIVEN PER MD ORDERED. WILL CONTINUE TO MONITOR.
[2019-07-30] MEDS: METRONIDAZOLE 500MG/ NS 100ML 500 MG in PREMIX 1 EA IV SCH ×3 (01:01→17:38)
--- NOTE | 2019-07-30 06:33 | NUR ---
RN NOTES ALL NEEDS ATTENDED AND MET, ABLE TO REST AND SLEPT WITH LONG INTERVALS, SAFETY MEASURES IN PLACE, MAINTAINED ON STRICT NPO, DUE MEDS GIVEN,CALL LIGHT WITH IN EASY REACH. WILL ENDORSE TO AM NURSE FOR CONTINUITY OF CARE.
[2019-07-30 07:00] LABS: BASOPHILS % (AUTO) 0.1 % (0.0-2.0); EOSINOPHILS % (AUTO) 0.1 % (0.0-6.0); HEMATOCRIT 32 % (39-51); HEMOGLOBIN 10.7 g/dL (13.5-17.5); LYMPHOCYTES # (AUTO) 1.5 /CMM (0.8-4.8); LYMPHOCYTES % (AUTO) 16.3 % (20.0-44.0); MEAN CORPUSCULAR HGB CONC 34 g/dl (31.0-36.0); MEAN CORPUSCULAR VOLUME 87 fL (80-96); MONOCYTES # (AUTO) 0.7 /CMM (0.1-1.30); MONOCYTES % (AUTO) 7.4 % (2.0-12.0); NEUTROPHILS % (AUTO) 76.1 % (43.0-81.0); PLATELET COUNT (AUTO) 285 /CMM (150-450); RED BLOOD CELL COUNT(AUTO) 3.66 MIL/uL (4.5-6.0); WHITE BLOOD COUNT (AUTO) 9.2 K/uL (4.3-11.0)
--- NOTE | 2019-07-30 07:20 | NUR ---
MS/RN NOTE THE PATIENT IS RECEIVED IN BED AWAKE. ALERT AND ORIENTED X4. IN ROOM AIR AND DENIES SOB. RESPIRATION REGULAR AND UNLABORED. PATIENT DENIES PAIN AT THIS TIME. LAC G 22 PATENT AND D5 1/2 NS INFUSING AT 75ML/HR AND NO S/S INFILTRATION NOTED. BED LOW AND LOCKED. SIDE RAILS UP X2. CALL LIGHT WITHIN REACH. WILL CONTINUE TO MONITOR.
[2019-07-30 07:23] LABS: CALCIUM, SERUM 8.5 mg/dL (8.5-10.1); CREATININE 0.7 mg/dL (0.6-1.3); MAGNESIUM 2.3 mg/dL (1.8-2.4); POTASSIUM 3.7 mmol/L (3.5-5.1)
[2019-07-30 07:41] LABS: PHOSPHORUS 3.6 mg/dL (2.5-4.9)
[2019-07-30 08:00] VITALS: BP 105/72
[2019-07-30] MEDS: CIPROFLOXACIN IV RTU 200 MG in PREMIX 1 EA IV SCH (08:11)
[2019-07-30] MEDS: methylPREDNISolone SOD SUCC 40 MG/ML VIAL IV SCH ×3 (08:12→16:22)
[2019-07-30] MEDS: FAMOTIDINE/PF INJ 20 MG/2 ML VIAL IV SCH (08:13)
[2019-07-30] MEDS: MORPHINE SULFATE INJ 2 MG/ML DISP.SYRIN IV PRN (08:36)
[2019-07-30] MEDS: FERROUS SULFATE (325 MG) 325 MG/TAB TABLET PO SCH (08:37)
[2019-07-30] MEDS: DOCUSATE SODIUM 100 MG CAPSULE PO SCH ×2 (08:37→16:22)
[2019-07-30] MEDS ORDERED: DIATR MEGLU/DIATRIZOATE SODIUM 120 ML BOTTLE (GASTROGRAPHIN) ONE (10:12)
[2019-07-30] MEDS ORDERED: KETOROLAC TROMETHAMINE INJ 30 MG/ML VIAL IV PRN (10:30)
--- NOTE | 2019-07-30 12:51 | NUR ---
MS/RN NOTE ROSANA HARO IS MADE AWARE SMALL-BOWEL FOLLOW-THROUGH STUDY RESULT AND SENIOR SALES DIRECTOR GAVE AN ORDER OF REGULAR DIET ORDER TO BE SERVED STARTING 07/30/19 LUNCH TIME. THE ORDER IS READ BACK, VERIFIED. NOTED AND CARRIED OUT. ALSO, PER SENIOR SALES DIRECTOR IF THE PATIENT TOLERATES THE DIET THAN HE WILL BE CLEARED TO GET DISCHARGED. DR BURK IS MADE AWARE. WILL SERVED LUNCH AND MONITOR THE PATIENT.
--- NOTE | 2019-07-30 13:30 | NUR ---
MS/RN NOTE THE PATIENT TOLERATED ORDERED REGULAR FOOD. DENIES PAIN/DISCOMFORT. ABDOMEN SOFT AND NON DISTENDED. NO NAUSEA OR VOMITING. ROSANA HARO AND DR BURK ARE MADE AWARE.
--- NOTE | 2019-07-30 14:17 | NUR ---
MS/RN NOTE ROSANA HARO GAVE CLEARANCE FOR DISCHARGE. DR BURK IS MADE AWARE.
--- NOTE | 2019-07-30 14:19 | NUR ---
MS/RN NOTE PATIENT COMPLAINED OF NAUSEA X1. PRN IV PUSH ZOFRAN IS GIVEN PER ORDER. WILL CONTINUE TO MONITOR. ROSANA HARO IS MADE AWARE.
[2019-07-30] MEDS ORDERED: MINERAL OIL 133 ML (PYXIS) 1 EA ENEMA RC ONE (14:30)
[2019-07-30] MEDS ORDERED: POLYETHYLENE GLYCOL 3350 17 GM POWD.PACK PO ONE (14:30)
--- NOTE | 2019-07-30 15:00 | NUR ---
MS/RN NOTE AT 9502 THE PATIENT VERBALIZED THAT ZOFRAN WAS EFFECTIVE AND HE DOES NOT HAVE NAUSEA AT THIS TIME.
--- NOTE | 2019-07-30 15:10 | NUR ---
MS/RN NOTE THE PATIENT WAS MADE AWARE THAT THERE ARE ORDER FOR MIRALAX AND FLEET MINERAL OIL ENEMA AND HE WAS EXPLAINED THE REASON AND ACTION OF THE MEDICATIONS. THE PATIENT REFUSED BOTH MEDICATIONS.
--- NOTE | 2019-07-30 15:13 | NUR ---
MS/RN NOTE THE PATIENT IS NOTED TO HAVE GOOD APPETITE FOR SNACK. HE IS EATING PAVEL COOKIES AND DRINKING 2 BOX OF MILK AT THIS TIME.
[2019-07-30 16:01] VITALS: BP 116/72
[2019-07-30] MEDS: QUETIAPINE FUMARATE 25 MG TABLET PO SCH (17:38)
--- NOTE | 2019-07-30 18:26 | NUR ---
MS/RN NOTE THE PATIENT ALERT AND ORIENTED X4. DENIES PAIN AT THIS TIME. RESPIRATION REGULAR AND UNLABORED. IN ROOM AIR AND SATURATION IS AT 98%. PATIENT IN NO APPARENT DISTRESS. PATIENT TOLERATED WELL DINNER REGULAR FOOD TOO. DENIES NAUSEA OR VOMITING. ABDOMEN SOFT AND NON-DISTENDED. LAC G 22 PATENT AND SALINE LOCKED. IV ANTIBIOTIC INFUSING PER ORDER AND NO S/S INFILTRATION NOTED. PATIENT WILL GET DISCHARGED BY PADDER AROUND 2100. PER PATIENT HE WILL BE PICKED UP BY HIS MOTHER. PATIENT IN BED. BED LOW AND LOCKED. SIDE RAILS UP X2. CALL LIGHT WITHIN REACH. WILL ENDORSE TO PADDER.
--- NOTE | 2019-07-30 20:00 | NUR ---
MS/RN NOTES RECEIVED PT. SITTING UP IN BED. PT. IS AWAKE, ALERT AND ORIENTED X4. BREATHING EVEN AND UNLABORED ON ROOM AIR. NO SOB, RESPIRATORY DISTRESS OR COMPLAINTS OF PAIN NOTED AT THIS TIME. NO COMPLAINTS OF NAUSEA OR VOMITING NOTED AT THIS TIME. PT. WITH LEFT AC 22 GAUGE PERIPHERAL IV PRESENT, PATENT AND INTACT ADMINISTERING TO PT. D5 1/2NS @ 75 ML/HR. PER DAYSHIFT NURSE PT. IS PENDING DISCHARGE TONIGHT, AWAITING PICK-UP FROM HIS MOM. PT. EXITCARE, BELONGINGS LIST AND DISCHARGE PAPERWORK COMPLETED AND SIGNED, ORIGINALS PLACED IN CHART AND COPY PROVIDED TO PT. REMOVED PT. IV ACCESS AND ID BAND. NO S/S OF INFECTION OR BLEEDING NOTED AT IV SITE. PT. VITAL SIGNS STABLE. PT. LEFT THE FLOOR IN STABLE CONDITION ACCOMPANIED BY CARRI APONTE AT 1999.
== END 2019-07-30 20:00 | disposition home or self-care (01) | DRG 245 ==
LOC: MED 21:45
PROVIDERS: ADMIT Registered Nurse; ATTEND Student in an Organized Health Care Education/Training Program
DX: K50.012 Crohn's disease of small intestine with intestinal obstruction (principal); E83.51 Hypocalcemia; F11.20 Opioid dependence, uncomplicated; N39.0 Urinary tract infection, site not specified; E86.0 Dehydration; D64.9 Anemia, unspecified; J45.909 Unspecified asthma, uncomplicated; Z76.5 Malingerer [conscious simulation]; Z91.14 Patient's other noncompliance with medication regimen; Z87.891 Personal history of nicotine dependence; Z83.3 Family history of diabetes mellitus; Z82.49 Family history of ischemic heart disease and other diseases of the circulatory system; Z79.51 Long term (current) use of inhaled steroids
CPT/HCPCS: 36415; 74250-TC; 80048-TC; 80061-TC; 82962-TC; 83735-TC; 84100-TC; 84443-TC; 85025-TC; 87081-TC; 87086-TC; A4216; C9113; G0378; J0744; J1885; J2270; J2405; J2920; J3490; J7060; Q9963